=== PATIENT | male | born 1985 | race Two or more races ===

== ENCOUNTER 2024-06-23 17:04 | Emergency (ER) | payer OTHER ==
[~2024-06-23] VITALS: Ht 190.5 cm; Wt 104.3 kg
[2024-06-23] MEDS ORDERED: KETO10TA2 PO (18:29)
[2024-06-23] MEDS ORDERED: ORPHENADRINE CITRATE 30 MG/ML AMPUL IM ONE (18:30)
[2024-06-23] MEDS ORDERED: KETOROLAC TROMETHAMINE 60 MG VIAL IM ONE (18:30)
== END 2024-06-23 18:47 | disposition home or self-care (01) ==
LOC: ER 17:05
DX: K60.2 Anal fissure, unspecified (principal)

== ENCOUNTER 2025-05-18 07:08 | Day surgery (SDC) | payer OTHER ==
[~2025-05-18 07:08] MED LIST: KETO10TA2 PO
[2025-05-18] MEDS ORDERED: fentaNYL CITRATE 50 MCG/ML AMPUL IV PUSH ONE (12:00)
[2025-05-18] MEDS ORDERED: ONDANSETRON HCL 2 MG/ML VIAL IV ONE (12:00)
[2025-05-18] MEDS ORDERED: MIDAZOLAM HCL 2 MG/2 ML VIAL IV ONE (12:00)
[2025-05-18] MEDS ORDERED: DIPHENHYDRAMINE HCL 50 MG/ML VIAL 1ML IV ONE (12:00)
== END 2025-05-18 12:50 | disposition home or self-care (01) ==
LOC: AMB-ENDOS 07:08
PROVIDERS: ATTEND Colon & Rectal Surgery
DX: D12.3 Benign neoplasm of transverse colon (principal); D12.4 Benign neoplasm of descending colon; K62.5 Hemorrhage of anus and rectum; K63.5 Polyp of colon; K62.1 Rectal polyp